=== PATIENT | male | born 1950 | race Caucasian/White ===

== ENCOUNTER 2019-05-25 19:14 | Emergency (ER) | payer OTHER, SELFPAY ==
[2019-05-25 19:30] VITALS: BP 140/92; PULSE 62; RESP 18; TEMP 36.7; O2SAT 98; BMI 22.9
--- NOTE | 2019-05-25 19:34 | ED_ITS ---
HPI - Male Genitourinary General Chief complaint: Urogenital-Male Stated complaint: trouble urinating, with blood in urine Time Seen by Provider: 05/25/19 19:20 Source: patient Mode of arrival: Ambulatory Limitations: no limitations History of Present Illness HPI Narrative: 68-year-old male comes to the emergency department with complaint of trouble with urinating or blood in his urine. Patient states he has been noticed some dysuria not really at the opening of the urethra but deeper inside the penis a little bit more where he would suspect the prostate is period patient has also noticed sofa bright red drops of blood initially followed by sort pinkish tinged urine. Patient has BPH and states that he has urinary retention. He still urinates regularly but very small amounts, his urologist has him self cathing once nightly to fully empty his bladder. He begin this process 1 week ago. Patient states that last night he did appreciate some mild resistance and then was able to advance the catheter. Patient denies any fevers. No abdominal pain. No nausea, no vomiting. He has had normal bowel movements with no constipation. He follows with Dr. Hough with Urology and telling him and is scheduled for cystoscopy shortly. Related Data Previous Rx's Medication Instructions Recorded ciprofloxacin HCl 500 mg PO BID #20 tab 05/25/19 Allergies Allergy/AdvReac Type Severity Reaction Status Date / Time Penicillins Allergy Verified 05/25/19 19:30 Review of Systems Review of Systems ROS Unobtainable: All systems reviewed & are unremarkable except as noted in HPI and below Constitutional Constitutional: Denies chills, Denies fever(s), Denies lethargy and Denies weakness Gastrointestinal Gastrointestinal: Denies abdominal pain, Denies change in bowel habits, Denies constipation, Denies diarrhea, Denies nausea and Denies vomiting Genitourinary Genitourinary: Reports as per HPI, Reports hematuria, Reports difficulty urinating (chronically), Denies genital lesions, Reports dysuria, Denies flank pain, Denies penile discharge, Denies scrotal swelling, Denies testicular mass, Denies testicular pain, Denies urinary frequency, Denies urinary hesitancy, Denies urinary incontinence and Denies urinary urgency Musculoskeletal Musculoskeletal: Denies back pain Neurologic Neurologic: Denies weakness Patient History Medical History (Updated 05/25/19 @ 20:14 by Maricruz C Mank, DO) BPH (benign prostatic hyperplasia) (Acute) Social History Smoking Status: Never smoker alcohol intake frequency: 0-2 drinks per day Substance Use Type: does not use Exam Narrative Exam Narrative: GENERAL: Alert and oriented x three, well-nourished, well- appearing male in mild distress HEENT: Head normocephalic, atraumatic, EOMI, pupils reactive, face symmetric, moist mucous membranes NECK: Supple, full range of motion CARDIOVASCULAR: Regular rate and rhythm without murmurs, rubs or gallops. RESPIRATORY: Breath sounds equal bilaterally, no wheezes rales or rhonchi. ABDOMEN: Soft, nontender. Normoactive bowel sounds all 4 quadrants. No guarding or rebound, rigidity, no mass : No CVA tenderness. Male: normal external examination, no penile discharge or lesions, testicles non-tender, cremasteric reflex intact, no inguinal hernias noted. EXTREMITIES: Normal range of motion, no clubbing or edema. Neurovascularly intact NEUROLOGICAL: Cranial nerves II through XII grossly intact. Moving all extremities SKIN: Warm, dry, no petechiae, no rashes or lesions. Initial Vital Signs Initial Vital Signs: Vital Signs Temperature 98.0 F 05/25/19 19:30 Pulse Rate 62 05/25/19 19:30 Respiratory Rate 18 05/25/19 19:30 Blood Pressure 140/92 H 05/25/19 19:30 Pulse Oximetry 98 05/25/19 19:30 Course Orders Ordered: ED Orders 05/25/19 20:07 Urine Culture Stat Urine Microscopic Stat Discontinued Medications Ciprofloxacin (Cipro) 500 mg PO NOW ONE Stop: 05/25/19 20:13 Last Admin: 05/25/19 20:21 Dose: 500 mg Documented by: [email or web address] Vital Signs Vital signs: Vital Signs - 8 hr 05/25/19 19:30 Temperature 98.0 F Pulse Rate 62 Respiratory Rate 18 Blood Pressure 140/92 H Pulse Oximetry 98 MDM - Male Genitourinary Lab Data Attestation: I reviewed the patient's lab results. Labs: Lab Results 05/25/19 05/25/19 Range/Units 19:55 20:07 Urine Color Cancelled Urine Appearance Cancelled Urine pH Cancelled Ur Specific [place] Cancelled Urine Protein Cancelled Urine Glucose (UA) Cancelled Urine Ketones Cancelled Urine Occult Blood Cancelled Urine Nitrate Cancelled Urine Bilirubin Cancelled Urine Urobilinogen Cancelled Ur Leukocyte Esterase Cancelled Urine RBC Cancelled 10-30/hpf H Urine WBC Cancelled 10-30/hpf H Ur Squamous Epith Cells Cancelled Ur Transition Epith Cell Cancelled Ur Renal Epithelial Cell Cancelled Calcium Oxalate Crystal Cancelled Uric Acid Crystals Cancelled Triple Phos Crystals Cancelled Other Crystals Cancelled Amorphous Sediment Cancelled Urine Bacteria Cancelled None seen Hyaline Casts Cancelled Granular Casts Cancelled RBC Casts Cancelled WBC Casts Cancelled Other Casts Cancelled Urine Mucus Cancelled Urine Trichomonas Cancelled Urine Yeast Cancelled Urine Sperm Cancelled Ur Culture Indicated? Cancelled Specimen cultured Micro UA Comment Cancelled Urine Dip Bedside Urine Glucose Negative Bedside Urine Bilirubin - Negative Bedside Urine Ketone - Negative Urine Specific [place] 1.015 Bedside Urine Occult Blood +++ Bedside Urine pH 7.0 Bedside Urine Protein ++ 100 Bedside Urine Urobilinogen +/- 1mg Bedside Urine Nitrite + Positive Bedside Urine Leukocytes +++ 500 Esterase MDM Narrative Medical decision making narrative: after discussion with patient, he had not been aware/instructed to clean prior to self catherization. Discussed the importance of this and nursing gave teaching for self catherization. Patient had 775mL out on catherization. No other difficulties with self catherization in the department. Patient has nitrates and LE on poc urine, micro sent for culture. Patient and I discussed findings. The fact that he was not cleansing prior to self catheterization also definitely increases his risk of UTI. Started on Cipro, was discuss side effects that are potential for Cipro, tendinopathy is a risk as well as tendon tear and to stop if he has any pain. Patient to return if any new changes, lightheadedness, dizziness he notices rapidly increasing amount of blood or other new or concerning symptoms. patient has cystoscopy planned for June 20 which will allow for direct visualization to look for any other causes for hematuria. Discharge Plan Departure Patient Disposition: Home Clinical Impression: Acute UTI BPH (benign prostatic hyperplasia) Qualifiers: Lower urinary tract symptom presence: symptoms present Lower urinary tract symptom detail: incomplete bladder emptying Qualified Code(s): N40.1 - Benign prostatic hyperplasia with lower urinary tract symptoms Discharge Date/Time: 05/25/19 20:42 Instructions: DI for Urinary Tract Infection (UTI) Activity Restrictions/Additional Instructions: Follow up with your urologist in the next week for recheck. Start antibiotics today. Take antibiotics until they are completely gone. Return to the emergency department for fevers greater 100.4 F, new or worsening abdominal pain, flank pain, increasing difficulty with urination, unable to urinate, unable to pass the catheter, new swelling, pain of the testicles or other new or concerning symptoms. Prescriptions: New ciprofloxacin HCl 500 mg tablet 500 mg PO BID Qty: 20 RF: 0
[2019-05-25 20:10] LABS: Bacteria Urine None Seen
[2019-05-25 20:17] LABS: Culture Indicated Urine Specimen Cultured; RBC Urine 10-30/HPF (0-5/HPF); WBC Urine 10-30/HPF (0-5/HPF)
[2019-05-25] MEDS: CIPROFLOXACIN 500 MG TABLET PO (20:21)
== END 2019-05-25 20:42 | disposition home or self-care (01) ==
PROVIDERS: Emergency Provider Emergency Medicine
DX: N39.0 Urinary tract infection, site not specified (principal); N40.1 Benign prostatic hyperplasia with lower urinary tract symptoms
CPT/HCPCS: 81003; 81015; 87077; 87086; 87186; 99282; 99283

== ENCOUNTER → 2019-06-18 14:06 | Outpatient (CLI) | payer OTHER, SELFPAY | PROVIDERS: Visit Provider Physician Assistant | DX: R30.0 Dysuria (principal) | CPT/HCPCS: 87077; 87086; 87186 ==